=== PATIENT | male | born 1960 | race American Indian/Alaskan Native ===

== ENCOUNTER 2020-09-28 14:23 | Emergency (ER) | payer MEDICAID ==
[~2020-09-28] VITALS: Ht 175.3 cm; Wt 90.7 kg
[~2020-09-28 14:23] MED LIST: [UNRECOGNIZED DRUG - CODE] PO
[2020-09-28 14:28] VITALS: BP 134/75
[2020-09-28] MEDS ORDERED: traMADol 50 MG TAB PO ONE (14:50)
[2020-09-28 14:59] LABS: BASOPHILS % (AUTO) 0.6 % (0.0-2.0); EOSINOPHILS # (AUTO) 0.2 K/uL (0-0.4); EOSINOPHILS % (AUTO) 3.4 % (0.0-4.0); HEMOGLOBIN 15.8 g/dL (12.0-18.0); LYMPHOCYTES # (AUTO) 1.2 K/uL (2.0-11.5); LYMPHOCYTES % (AUTO) 20.9 % (20.5-51.1); MEAN CORPUSCULAR HEMOGLOBIN 29 pg (27-31); MEAN CORPUSCULAR HGB CONC 34 g/dL (33-37); MEAN CORPUSCULAR VOLUME 84.3 fL (80-94); MONOCYTES # (AUTO) 0.5 K/uL (0.8-1.0); MONOCYTES % (AUTO) 8.3 % (1.7-9.3); NEUTROPHILS # (AUTO) 3.8 K/uL (1.8-7.7); NEUTROPHILS % (AUTO) 66.8 % (42.2-75.2); PLATELET COUNT (AUTO) 179 K/uL (140-450); RED BLOOD CELL COUNT(AUTO) 5.46 MIL/uL (4.20-6.10); WHITE BLOOD COUNT (AUTO) 5.8 K/uL (4.8-10.8)
[2020-09-28 15:11] LABS: ALBUMIN 3.5 g/dL (3.4-5.0); ANION GAP 8.9 (8-16); CARBON DIOXIDE 27.3 mmol/L (21-32); CREATININE 1.1 mg/dL (0.6-1.3); POTASSIUM 4.2 mmol/L (3.5-5.1); TOTAL BILIRUBIN 0.7 mg/dL (0.0-1.0)
[2020-09-28] MEDS ORDERED: METH750T5 PO (15:57)
[2020-09-28] MEDS ORDERED: NAPR-54 PO (15:57)
[2020-09-28] MEDS ORDERED: METF-988 PO (15:58)
[2020-09-28 16:20] VITALS: BP 125/80
== END 2020-09-28 16:42 | disposition home or self-care (01) ==
LOC: MED 14:23
DX: M54.6 Pain in thoracic spine (principal); R53.1 Weakness; F17.290 Nicotine dependence, other tobacco product, uncomplicated; Z79.899 Other long term (current) drug therapy
CPT/HCPCS: 36415; 71045; 80053; 81002; 83880; 84484; 85025; 93005; 99285

== ENCOUNTER 2020-10-06 02:13 | Emergency (ER) | payer MEDICAID ==
[~2020-10-06] VITALS: Ht 172.7 cm; Wt 75.3 kg
[~2020-10-06 02:13] MED LIST changes: +METF-988 PO; +METH750T5 PO; +NAPR-54 PO
[2020-10-06 02:24] VITALS: BP 122/72
--- NOTE | 2020-10-06 02:25 | NUR ---
59, MALE, BIB SELF, AAOX4, ON ROOM AIR, C/O ABD PAIN RADIATING TO HIS BACK, 12/31 STARTED LAST WEEK, NOTED RED RASHES ON THE ABD AREA ALL THE WAY TO HIS BACK. SAFETY MEASURES IN PLACE NKDA PAST MED HX: HEART FILURE, DM
[2020-10-06] MEDS ORDERED: ACYC-278 PO (03:39)
[2020-10-06] MEDS ORDERED: ACET-8386 PO (03:39)
[2020-10-06 04:01] VITALS: BP 122/72
--- NOTE | 2020-10-06 04:01 | NUR ---
Patient discharged with v/s stable. Written and verbal after care instructions given and explained. Patient alert, oriented and verbalized understanding of instructions. Ambulatory with steady gait. All questions addressed prior to discharge. ID band removed. Patient advised to follow up with PMD. Rx of HYDROCODONE-ACETAMINOPHEN AND ACYCLOVIR given. Patient educated on indication of medication including possible reaction and side effects. Opportunity to ask questions provided and answered.
== END 2020-10-06 04:01 | disposition home or self-care (01) ==
LOC: MED 02:13
DX: B02.9 Zoster without complications (principal); E11.9 Type 2 diabetes mellitus without complications; I50.9 Heart failure, unspecified; Z79.899 Other long term (current) drug therapy
CPT/HCPCS: 81002; 99283

== ENCOUNTER 2021-03-09 18:26 | Emergency (ER) | payer MEDICAID, OTHER ==
[~2021-03-09] VITALS: Ht 175.3 cm; Wt 81.6 kg
[~2021-03-09 18:26] MED LIST changes: +ACET-8386 PO; +ACYC-278 PO
[2021-03-09 18:42] VITALS: BP 131/79
[2021-03-09] MEDS ORDERED: CYCL-711 PO (22:00)
[2021-03-09] MEDS ORDERED: IBUP-2213 PO (22:00)
--- NOTE | 2021-03-09 22:00 | NUR ---
SEEN AND DISCHARGE BY JOSE MARIA FOSTER. NO NURSING INTERVENTIONS NEEDED.
[2021-03-09 22:04] VITALS: BP 131/79
--- NOTE | 2021-03-09 22:04 | NUR ---
Patient discharged with v/s stable. Written and verbal after care instructions given and explained. Patient alert, oriented and verbalized understanding of instructions. Ambulatory with steady gait. All questions addressed prior to discharge. ID band removed. Patient advised to follow up with PMD. Rx of FLEXERIL AND IBUPROFEN given. Patient educated on indication of medication including possible reaction and side effects. Opportunity to ask questions provided and answered.
== END 2021-03-09 22:04 | disposition home or self-care (01) ==
LOC: MED 18:26
DX: S16.1XXA Strain of muscle, fascia and tendon at neck level, initial encounter (principal); S39.012A Strain of muscle, fascia and tendon of lower back, initial encounter; E11.9 Type 2 diabetes mellitus without complications; I50.9 Heart failure, unspecified; Z79.899 Other long term (current) drug therapy; V89.2XXA Person injured in unspecified motor-vehicle accident, traffic, initial encounter; Y93.89 Activity, other specified; Y92.89 Other specified places as the place of occurrence of the external cause; Y99.8 Other external cause status
CPT/HCPCS: 99283

== ENCOUNTER 2021-08-23 00:27 | Emergency (ER) | payer MEDICAID ==
[~2021-08-23] VITALS: Ht 175.3 cm; Wt 79.4 kg
[~2021-08-23 00:27] MED LIST changes: +CYCL-711 PO; +IBUP-2213 PO; +METF-1243 PO; -METF-988 PO
[2021-08-23 00:32] VITALS: BP 136/99
--- NOTE | 2021-08-23 00:32 | NUR ---
TO BED AMBULATORY
[2021-08-23] MEDS ORDERED: MORPHINE SULFATE 2 MG/ML SYR IVP ONE (00:40)
[2021-08-23] MEDS ORDERED: PANTOPRAZOLE 40 MG INJ VIAL IVP ONE (00:40)
[2021-08-23] MEDS ORDERED: NACL 0.9% 1,000 ML IV SCH (00:40)
[2021-08-23] MEDS ORDERED: ONDANSETRON 4 MG/2 ML VIAL IVP ONE (00:40)
--- NOTE | 2021-08-23 00:41 | NUR ---
patient c/o epigastric pain x2wks and urinary burning started yesterday. was at [place] saturday or saturday and was told that everything was fine. patient is noncompliant of medications and unable to get proper medications. patient is a smoker. urinary burning- frequency, burning, pain, low back tenderness, with foul smell. patient denies n/v/d. pmh: dm, high cholesterol, chf nka
--- NOTE | 2021-08-23 00:47 | NUR ---
Dr. Shahid examining patient.
[2021-08-23 00:59] LABS: BASOPHILS # (AUTO) 0.2 K/uL (0.00-0.22); BASOPHILS % (AUTO) 1.9 % (0.0-2.0); EOSINOPHILS # (AUTO) 0.1 K/uL (0-0.4); EOSINOPHILS % (AUTO) 1.1 % (0.0-4.0); HEMATOCRIT 43.1 % (36-52); HEMOGLOBIN 14.8 g/dL (12.0-18.0); LYMPHOCYTES # (AUTO) 1.3 K/uL (2.0-11.5); LYMPHOCYTES % (AUTO) 9.8 % (20.5-51.1); MEAN CORPUSCULAR HEMOGLOBIN 29 pg (27-31); MEAN CORPUSCULAR HGB CONC 34 g/dL (33-37); MEAN CORPUSCULAR VOLUME 82.9 fL (80-94); MONOCYTES # (AUTO) 0.8 K/uL (0.8-1.0); MONOCYTES % (AUTO) 6.3 % (1.7-9.3); NEUTROPHILS # (AUTO) 10.4 K/uL (1.8-7.7); NEUTROPHILS % (AUTO) 80.9 % (42.2-75.2); PLATELET COUNT (AUTO) 244 K/uL (140-450); RED CELL DISTRIBUTION WIDTH 14.8 % (11.6-13.7); WHITE BLOOD COUNT (AUTO) 12.9 K/uL (4.8-10.8)
[2021-08-23 00:59] LABS: APPEARANCE,URINE SL CLOUDY (CLEAR); BILIRUBIN,URINE NEGATIVE (NEGATIVE); BLOOD, URINE 2+ (NEGATIVE); COLOR,URINE YELLOW (YELLOW); LEUKOCYTE ESTERASE ,URINE 1+ (NEGATIVE); NITRITE, URINE NEGATIVE (NEGATIVE); UGLUCOSE 3+ (NEGATIVE)
[2021-08-23 01:14] LABS: WBC,URINE 60-80 /HPF (0-5)
--- NOTE | 2021-08-23 01:20 | NUR ---
ultrasound at bedside
[2021-08-23 01:27] LABS: ALBUMIN 3.1 g/dL (3.4-5.0); ANION GAP 12.6 (8-16); CARBON DIOXIDE 29.7 mmol/L (21-32); CREATININE 1.1 mg/dL (0.6-1.3); POTASSIUM 4.3 mmol/L (3.5-5.1); TOTAL BILIRUBIN 0.3 mg/dL (0.0-1.0)
--- NOTE | 2021-08-23 01:47 | NUR ---
patient to CT via [facility]
[2021-08-23] MEDS ORDERED: cefTRIAXone 1,000 MG VIAL ONE (02:30)
[2021-08-23] MEDS ORDERED: CEPH-588 PO (04:08)
[2021-08-23 05:09] VITALS: BP 141/98
== END 2021-08-23 05:09 | disposition home or self-care (01) ==
LOC: MED 00:27
DX: N39.0 Urinary tract infection, site not specified (principal); R11.2 Nausea with vomiting, unspecified; I50.9 Heart failure, unspecified; E11.9 Type 2 diabetes mellitus without complications; Z79.2 Long term (current) use of antibiotics; Z79.1 Long term (current) use of non-steroidal anti-inflammatories (NSAID); Z79.899 Other long term (current) drug therapy; Z79.891 Long term (current) use of opiate analgesic
CPT/HCPCS: 36415; 74177; 76705; 80053; 81001; 82948; 83605; 83690; 84484; 85025; 87040; 87086; 93005; 96361; 96365; 96375; 99285; C9113; J0696; J2270; J2405; J7030; Q0092; Q9967

== ENCOUNTER 2022-11-04 11:13 | Inpatient (IN) | payer MEDICAID ==
[~2022-11-04] VITALS: Ht 175.3 cm; Wt 81.6 kg
[~2022-11-04 11:13] MED LIST changes: -ACET-8386 PO; +ACET-8905 PO; +CEPH-588 PO
[2022-11-04 11:14] VITALS: BP 119/71
--- NOTE | 2022-11-04 11:24 | NUR ---
AMBULATED TO BED IN NO DISTRESS.
[2022-11-04 12:13] LABS: BASOPHILS % (AUTO) 0.7 % (0.0-2.0); EOSINOPHILS % (AUTO) 0.4 % (0.0-4.0); HEMATOCRIT 40.2 % (36-52); HEMOGLOBIN 13.6 g/dL (12.0-18.0); LYMPHOCYTES # (AUTO) 1.2 K/uL (2.0-11.5); LYMPHOCYTES % (AUTO) 18.3 % (20.5-51.1); MEAN CORPUSCULAR HEMOGLOBIN 28 pg (27-31); MEAN CORPUSCULAR HGB CONC 34 g/dL (33-37); MEAN CORPUSCULAR VOLUME 83.6 fL (80-94); MONOCYTES # (AUTO) 0.5 K/uL (0.8-1.0); MONOCYTES % (AUTO) 7.1 % (1.7-9.3); NEUTROPHILS # (AUTO) 4.9 K/uL (1.8-7.7); NEUTROPHILS % (AUTO) 73.5 % (42.2-75.2); PLATELET COUNT (AUTO) 182 K/uL (140-450); RED BLOOD CELL COUNT(AUTO) 4.81 MIL/uL (4.20-6.10); RED CELL DISTRIBUTION WIDTH 13.9 % (11.6-13.7); WHITE BLOOD COUNT (AUTO) 6.7 K/uL (4.8-10.8)
--- NOTE | 2022-11-04 12:25 | NUR ---
PATIENT RESTING COMFORTABLY IN BED.
[2022-11-04 12:35] LABS: ALBUMIN 2.5 g/dL (3.4-5.0); ANION GAP 8.3 (8-16); CARBON DIOXIDE 26.9 mmol/L (21-32); CREATININE 1.1 mg/dL (0.6-1.3); POTASSIUM 4.2 mmol/L (3.5-5.1); TOTAL BILIRUBIN 0.6 mg/dL (0.0-1.0)
[2022-11-04] MEDS ORDERED: ALBUTEROL 0.083% 2.5 MG/3 ML NEBU INH PRN (13:20)
[2022-11-04] MEDS ORDERED: LORazepam 2 MG/ML VIAL IVP PRN (13:25)
[2022-11-04] MEDS ORDERED: MORPHINE SULFATE 2 MG/ML SYR IVP PRN (13:25)
[2022-11-04] MEDS ORDERED: ACETAMINOPHEN 325 MG TAB PO PRN (13:25)
[2022-11-04] MEDS ORDERED: ONDANSETRON 4 MG/2 ML VIAL IVP PRN (13:25)
[2022-11-04] MEDS ORDERED: POTASSIUM CHLORIDE 10 MEQ TABER PO PRN (13:25)
[2022-11-04] MEDS ORDERED: DOCUSATE SODIUM 100 MG GELCAP PO PRN (13:25)
[2022-11-04] MEDS ORDERED: MAG SULF 2000 MG/WATER PREMIX 50 ML IV PRN (13:25)
[2022-11-04] MEDS ORDERED: DEXTROSE 50% 50 ML SYR IVP PRN (13:30)
[2022-11-04] MEDS ORDERED: cefTRIAXone 1,000 MG VIAL ONE (13:40)
[2022-11-04] MEDS: FUROSEMIDE 40 MG/4 ML VIAL IVP SCH ×2 (13:46→23:43)
[2022-11-04] MEDS: BLOOD GLUCOSE MONITORING 1 DEV DEV FS SCH ×2 (16:41→21:00)
--- NOTE | 2022-11-04 19:00 | NUR ---
61-year-old male with past medical history of diabetes, high cholesterol, unspecified hand surgery, daily 1 pack/day smoker presenting to the emergency department chief complaint of shortness of breath. O2 saturations on room air down to 90%. Patient was recently at [facility] where he left AMA today.
--- NOTE | 2022-11-04 19:30 | NUR ---
pt is resting and using nasal canula 2l. Pt is walkie talkie. No distrees acute noted.
--- NOTE | 2022-11-04 20:10 | NUR ---
RECEIVED FROM ER VIA [facility] TO ROOM 105 B. REPORT RECEIVED AT BEDSIDE OPAL RN/ER. PT AOX4 WITH DX OF CHF. 2L/NC SAT 92%
--- NOTE | 2022-11-04 20:10 | NUR ---
FIRST AND ONLY DOSE OF ROCEPHIN GIVEN IN ER Addendum: 11/05/22 at 0742 by [facility] 11 MAGDA RN Amended: Links added.
--- NOTE | 2022-11-04 20:30 | NUR ---
CHEST TIGHTNESS FROM 04/02 IN ER TO STATED 10/31. TROP 107. PT TEACHING CONCERNING RATIONALE FOR DECREASED ACTIVITY RELATED TO CHEST TIGHTNESS AND TROP LEVELS AND [facility] DESIRED TO PREVENT PHYSICAL EXERTION IT PLACES STRESS AND DEMAND FOR MORE O2 ON HEART TISSUES. STATED UNDERSTOOD AND WILL COMPLY. ORIENTED TO ROOM AND CALL LIGHT SYSTEM. DENIES ACUTE DISTRESS AND IS NON-RADIATING.
--- NOTE | 2022-11-04 20:34 | NUR ---
Patient will be admitted to care of [facility]. Admited to tele. Will go to room 105. Belongings list completed. Report to kary Romo
--- NOTE | 2022-11-04 23:30 | NUR ---
BLOOD SUGAR 235. 4 UNITS HUMALOG.
[2022-11-04] MEDS: INSULIN LISPRO SLIDING SCALE 100 UNITS/ML VIAL SUBQ PRN (23:44)
[2022-11-05] VITALS: BP 116/80
[2022-11-05] MEDS: ZOLPIDEM 10 MG TAB PO PRN ×2 (01:04→21:13)
[2022-11-05 04:00] VITALS: BP 114/73
[2022-11-05 05:13] LABS: BASOPHILS % (AUTO) 0.6 % (0.0-2.0); EOSINOPHILS # (AUTO) 0.1 K/uL (0-0.4); EOSINOPHILS % (AUTO) 1.5 % (0.0-4.0); LYMPHOCYTES # (AUTO) 1.7 K/uL (2.0-11.5); LYMPHOCYTES % (AUTO) 28.4 % (20.5-51.1); MEAN CORPUSCULAR HEMOGLOBIN 28 pg (27-31); MEAN CORPUSCULAR HGB CONC 34 g/dL (33-37); MEAN CORPUSCULAR VOLUME 83.1 fL (80-94); MONOCYTES # (AUTO) 0.6 K/uL (0.8-1.0); MONOCYTES % (AUTO) 9.7 % (1.7-9.3); NEUTROPHILS # (AUTO) 3.6 K/uL (1.8-7.7); NEUTROPHILS % (AUTO) 59.8 % (42.2-75.2); PLATELET COUNT (AUTO) 181 K/uL (140-450); RED BLOOD CELL COUNT(AUTO) 4.57 MIL/uL (4.20-6.10); RED CELL DISTRIBUTION WIDTH 14.3 % (11.6-13.7)
[2022-11-05 05:29] LABS: PROTHROMBIN TIME 10.6 secs (10.8-13.4)
[2022-11-05 05:32] LABS: ANION GAP 8.5 (8-16); CARBON DIOXIDE 28.3 mmol/L (21-32); CREATININE 1.1 mg/dL (0.6-1.3); POTASSIUM 3.8 mmol/L (3.5-5.1)
--- NOTE | 2022-11-05 06:00 | NUR ---
BLOOD SUGAR 186/2 UNITS HUMALOG GIVEN. THORACENTESIS CONSENT SIGNED AND A.M. CARE PERFORMED. MADE READY FOR PICK-UP. INFORMED PT NO TIME SCHEDULE MADE KNOWN. PHONED RADIOLOGY TO VERIFY PT MAY EAT. AFFIRMED.
[2022-11-05] MEDS: INSULIN LISPRO SLIDING SCALE 100 UNITS/ML VIAL SUBQ PRN ×4 (06:18→21:20)
[2022-11-05] MEDS: BLOOD GLUCOSE MONITORING 1 DEV DEV FS SCH ×4 (06:20→21:14)
--- NOTE | 2022-11-05 07:30 | NUR ---
HAND-OFF REPORT TO A.M NURSES FOR CONTINUITY OF CARE AND INTRODUCTION ON NEW A.M NURSE. RELINQUISHED CARE OF PT AT THIS TIME.
[2022-11-05 08:00] VITALS: BP 130/62
--- NOTE | 2022-11-05 08:00 | NUR ---
Patient's Plan of Care was discussed and reviewed with SKIP OPERATOR: SUDHEER MARTIN
[2022-11-05] MEDS: ASPIRIN 81 MG TAB.CHEW PO SCH (09:00)
--- NOTE | 2022-11-05 09:09 | NUR ---
PATIENT HAS BEEN SCREENED AND CATEGORIZED MODERATE NUTRITION RISK. PATIENT WILL BE SEEN WITHIN 3-5 DAYS OF ADMISSION. REVIEWED BY KEVYN AWAN RD
--- NOTE | 2022-11-05 09:19 | NUR ---
SCHEDULED ASPIRIN PO MEDICATION, ON HOLD D/T SCHEDULED GUIDED US THORACENTESIS.
[2022-11-05 12:00] VITALS: BP 114/68
[2022-11-05 13:16] LABS: CHOL/HDL RATIO 2.4 (1-4.5); FREE T4 (FREE THYROXINE) 0.99 ng/dL (0.76-1.46); THYROID STIMULATING HORMONE 4.91 uIU/mL (0.34-3.74)
--- NOTE | 2022-11-05 13:21 | NUR ---
DC PLANNING ASSESSMENT COMPLETE PLEASE REFER TO ASSESSMENT FOR ADDITIONAL DETAILS PT REPORTS TENTATIVE DC PLAN IS TO RETURN HOME WITH PARTNER PROVIDING TRANSPORTATION, WHEN MEDICALLY CLEARED BY PHYSICIAN Addendum: 11/05/22 at 1324 by Dago SAENZ Amended: Links added.
--- NOTE | 2022-11-05 13:53 | NUR ---
DC PLANN[age] YRS OLD MALE PATIENT WAS ADMITTED FROM HOME WITH A DX OF CHF. PATIENT HAS A HX OF DM, SMOKER AND CHF. CXR AND CT CHEST SHOWED MODERATE PULMONARY EDEMA AND SMALL LEFT TRACE LEFT PLEURAL EFFUSION. RAPID COVID TEST NEGATIVE. ADMINISTERED IV LASIX AND CONTINUED HOME MEDS. CONSULTED WITH CARDIO AND PULMO. DC PLAN TO GO HOME WHEN STABLE. CM TO FOLLOW Addendum: 11/06/22 at 1220 by LEÓN LEROY CM CALLED [facility] LOCATED AT [phone] [address] SPOKE WITH MARCIE WHO WAS ABLE TO HELP ME SCHEDULE AN APPOINTMENT FOR 11/13/2022 AT 1430. WENT TO BEDSIDE TO INFORM PATIENT OF APPOINTMENT WELL GIVE APPOINTMENT SLIP.
[2022-11-05 16:00] VITALS: BP 106/69
--- NOTE | 2022-11-05 17:11 | NUR ---
BS CHECKED 205. INSULIN WAS GIVEN PER SLIDING SCALE.
--- NOTE | 2022-11-05 17:21 | NUR ---
URINE COLLECTED. SEND TO LAB.
--- NOTE | 2022-11-05 18:31 | NUR ---
MAGNESIUM 1.6. PRN MAG RIDER WAS GIVEN BY DEEPAK MAN. TOLERATED WELL.
--- NOTE | 2022-11-05 19:19 | NUR ---
REPORT GIVEN TO NIGHT NURSE CHARMAINE FOR CONTINUITY OF CARE. MAGNESIUM IV ONGOING. REMAINS STABLE.
[2022-11-05 19:32] LABS: BARBITURATE, URINE NEGATIVE ng/ml (NEG <=200); BENZODIAZEPINE, URINE NEGATIVE ng/mL (NEG <=200); CANNABINOID, URINE NEGATIVE ng/mL (NEG <=50); COCAINE, URINE NEGATIVE ng/mL (NEG <=300); OPIATE, URINE NEGATIVE ng/mL (NEG <=2000); PHENCYCLIDINE SCREEN,URINE NEGATIVE ng/mL (NEG <=25)
[2022-11-05 20:00] VITALS: BP 114/63
--- NOTE | 2022-11-05 20:00 | NUR ---
ASSUMED CARE OF PATIENT AT THIS TIME. A/O X 4. VSS. AFEBRILE. RESPIRATIONS EVEN AND UNLABORED. NO SOB NOTED. O2 SAT 94% ON ROOM AIR. MAGNESIUM INFSUING AT 25ML/HR WITH NO REDNESS OR IRRITATION NOTED. DENIES PAIN AT THIS TIME. NO ACUTE DISTRESS NOTED. WILL CONTINUE TO MONITOR FOR SAFETY. Sylvester WHYTE RN.
[2022-11-05] MEDS: FUROSEMIDE 40 MG/4 ML VIAL IVP SCH (20:39)
[2022-11-06] VITALS: BP 108/65
--- NOTE | 2022-11-06 00:30 | NUR ---
SLEEPING COMFORTABLY WITH NO ACUTE DISTRESS NOTED. Sylvseter WHYTE RN.
[2022-11-06 04:00] VITALS: BP 108/65
--- NOTE | 2022-11-06 06:30 | NUR ---
PATIENT REFUSED AM LABS AND MORNING ACCU CHECK. DR. KOWALSKI CALLED TO BE NOTIFIED. WILL ENDORSE TO DAY SHIFT NURSE. Sylvester WHYTE RN.
--- NOTE | 2022-11-06 06:57 | NUR ---
PATIENT REFUSING TO WEAR TELE MONITOR. STATES HE WANTS TO SEE THE DOCTOR. CHARGE NURSE NOTIFIED. DR. KOWALSKI CALLED TO BE NOTIFIED. WILL ENDORSE TO DAY SHIFT NURSE. Sylvester WHYTE RN.
--- NOTE | 2022-11-06 07:15 | NUR ---
ASSUMED CONTINUITY OF CARE. NON-COMPLIANT. REFUSED TO CHECK BLOOD SUGAR, REFUSED AM BLOOD DRAW, REFUSED TELE MONITOR. WANTED TO GO AMA AFTER SEEN BY MD. INFORMED CHARGE NURSE MELISSA CANTOR.
[2022-11-06] MEDS: BLOOD GLUCOSE MONITORING 1 DEV DEV FS SCH ×2 (07:30→11:14)
[2022-11-06 08:00] VITALS: BP_SYST 110; BP_SYST 117; BP_DIAS 51; BP_DIAS 94
--- NOTE | 2022-11-06 08:00 | NUR ---
Patient's Plan of Care was discussed and reviewed with DEONNA:
[2022-11-06] MEDS: ASPIRIN 81 MG TAB.CHEW PO SCH (08:44)
[2022-11-06] MEDS ORDERED: lisinopriL 5 MG TAB PO SCH (09:00)
[2022-11-06] MEDS ORDERED: METOPROLOL SUCCINATE 50 MG TABER PO SCH (09:00)
[2022-11-06] MEDS: FUROSEMIDE 40 MG/4 ML VIAL IVP SCH (09:11)
[2022-11-06] MEDS: INSULIN LISPRO SLIDING SCALE 100 UNITS/ML VIAL SUBQ PRN (11:14)
[2022-11-06 12:00] VITALS: BP 137/99
[2022-11-06] MEDS ORDERED: SPIR50TA PO (12:41)
[2022-11-06] MEDS ORDERED: ASPI81CT95 PO (12:41)
[2022-11-06] MEDS ORDERED: LISI5TAB24 PO (12:41)
[2022-11-06] MEDS ORDERED: POTA8TAB19 PO (12:41)
[2022-11-06] MEDS ORDERED: FURO-570 PO (12:41)
[2022-11-06] MEDS ORDERED: MORP2SOL18 IVP (12:41)
--- NOTE | 2022-11-06 13:00 | NUR ---
REFUSED TO USE WHEELCHAIR. D/C HOME. AMBULATORY AND HAD STEADY GAIT. IN STABLE CONDITION. INFORMED CHARGE NURSE MELISSA CANTOR.
== END 2022-11-06 13:00 | disposition home or self-care (01) | DRG 194 ==
LOC: MED 11:13 → MTU 13:22
PROVIDERS: ADMIT Family Medicine; ATTEND Family Medicine
DX: I50.43 Acute on chronic combined systolic (congestive) and diastolic (congestive) heart failure (principal); J96.01 Acute respiratory failure with hypoxia; E43 Unspecified severe protein-calorie malnutrition; J90 Pleural effusion, not elsewhere classified; J81.1 Chronic pulmonary edema; E83.51 Hypocalcemia; E83.42 Hypomagnesemia; E78.00 Pure hypercholesterolemia, unspecified; Z20.822 Contact with and (suspected) exposure to COVID-19; Z87.891 Personal history of nicotine dependence; Z68.26 Body mass index [BMI] 26.0-26.9, adult; E11.65 Type 2 diabetes mellitus with hyperglycemia
CPT/HCPCS: 36415; 71045; 76604; 80048; 80053; 80305; 82948; 83036; 83605; 83735; 83880; 84439; 84443; 84484; 85025; 85610; 85730; 87040; 87081; 93005; 96374; 99291; J0696; J1940; J3475; J7060; Q0092